=== PATIENT | female | born 1970 | race Caucasian/White ===

== ENCOUNTER 2018-12-30 08:02 | Day surgery (SDC) | payer BC ==
[2018-12-28 15:47] VITALS: BMI 35.5
[~2018-12-30 08:02] MED LIST: LACTATED RINGERS 1,000 ML IV SCH; LIDOCAINE 1% 20 ML VIAL (10MG/ML) FOR IV START INTRADERMA PRN
--- NOTE | 2018-12-30 08:02 | P.GSHP ---
History of Present Illness H&P Date: 12/30/18 CHIEF COMPLAINT: GERD HISTORY OF PRESENT ILLNESS: The patient is a 48-year-old female who presents reports gastroesophageal reflux disease. Upper endoscopy was offered for further evaluation and management. PAST MEDICAL HISTORY: Please see list. PAST SURGICAL HISTORY: Please see list. MEDICATIONS: Please see list. ALLERGIES: Please see list. SOCIAL HISTORY: No illicit drug use FAMILY HISTORY: No reports of Crohn disease or ulcerative colitis. REVIEW OF ORGAN SYSTEMS: CONSTITUTIONAL: No reports of fevers or chills. GI: Denies any blood in stools or constipation. PHYSICAL EXAM: VITAL SIGNS: Stable GENERAL: Well-developed and pleasant in no acute distress. HEENT: No scleral icterus. Extraocular movements grossly intact. Moist buccal mucosa. NECK: Supple without lymphadenopathy. CHEST: Unlabored respirations. Equal bilateral excursions. CARDIOVASCULAR: Regular rate and rhythm. Distal 2+ pulses. ABDOMEN: Soft, nondistended. MUSCULOSKELETAL: No clubbing, cyanosis, or edema. ASSESSMENT: 1. Gastroesophageal reflux disease PLAN: 1. Recommend proceeding with an upper endoscopy Past Medical History Past Medical History: GERD/Reflux, Hypertension, Thyroid Disorder Additional Past Medical History / Comment(s): arthritis in hip and back, History of Any Multi-Drug Resistant Organisms: None Reported Past Surgical History: Section, Cholecystectomy, Hysterectomy, Tonsillectomy Additional Past Surgical History / Comment(s): C/S x 3 Past Anesthesia/Blood Transfusion Reactions: Previous Problems w/ Anesthesia, Motion Sickness Additional Past Anesthesia/Blood Transfusion Reaction / Comment(s): "took longer to come out one time" Smoking Status: Never smoker - Past Family History Mother Family Medical History: Cancer Father Family Medical History: Cancer Medications and Allergies Home Medications Medication Instructions Recorded Confirmed Type L.acidoph,Paracasei, B.lactis 1 each PO DAILY 12/28/18 12/28/18 History [Probiotic] Thyroid, Pork [[place] Thyroid] 30 mg PO DAILY 12/28/18 12/28/18 History Vitamin A/D/K 1 tab PO DAILY 12/28/18 12/28/18 History amLODIPine [Norvasc] 5 mg PO DAILY 12/28/18 12/28/18 History Allergies Allergy/AdvReac Type Severity Reaction Status Date / Time ciprofloxacin Allergy tendons Verified 12/28/18 15:38 tightened/ could not walk codeine Allergy Rash/Hives/ Verified 12/28/18 15:38 hyperventil ated fexofenadine [From Abbi] Allergy Chest Verified 12/28/18 15:38 Pain/rash methylprednisolone Allergy headache,pa Verified 12/28/18 15:56 lpitations, rash pentazocine [From Talwin] Allergy rash/hyperv Verified 12/28/18 15:38 entilation sumatriptan [From Imitrex] Allergy Chest Verified 12/28/18 15:38 Pain/severe headache
[2018-12-30 08:35] VITALS: RESP 16; TEMP 98.1
[2018-12-30] MEDS ORDERED: LIDOCAINE 1% INJ 10MG/ML (20 ML MDV) ONE (08:54)
[2018-12-30] MEDS ORDERED: PROPOFOL 10 MG/ML 20 ML VIAL IV ONE (08:54)
--- NOTE | 2018-12-30 09:14 | P.PCN ---
Date of Procedure: 12/30/18 Description of Procedure: PREOPERATIVE DIAGNOSIS: Gastroesophageal reflux disease. Morbid obesity. POSTOPERATIVE DIAGNOSIS: Morbid obesity. Gastritis superficial, acute without bleeding Duodenitis, without bleeding and acute Gastroesophageal reflux disease with esophagitis Diaphragmatic hiatal hernia without obstruction OPERATION: Esophagogastroduodenoscopy with biopsies along antrum. SURGEON: Janey Salgado MD ANESTHESIA: MAC. INDICATIONS: The patient is a 48-year-old female who presents with a history of reflux disease. Benefits and risks of the procedure were described. Informed consent was obtained. DESCRIPTION: The patient was brought into the endoscopy suite and laid in the left lateral decubitus position. An Olympus gastroscope was passed along the posterior oropharynx down to the distal esophagus where the squamocolumnar junction was encountered at 40 cm from the incisors. The stomach was entered and no bile reflux was found. Additional findings are listed below. Biopsies with cold forceps were obtained of the antrum. The first through third portion of the duodenum was examined and unremarkable. Retroflexion of the scope confirmed Hill grade 3 lower esophageal valve. The squamocolumnar junction demonstrated LA grade A erosive esophagitis. The stomach was desufflated. The patient tolerated the procedure well. FINDINGS: Squamocolumnar junction 37 cm from the incisors. Diaphragmatic hiatus at 36 cm. Hiatal hernia, 1 cm Hill grade 3 lower esophageal valve. LA grade A erosive esophagitis. Active duodenitis. Acute superficial gastritis without RECOMMENDATIONS: Upper endoscopy as needed. Plan - Discharge Summary Discharge Rx Participant: No New Discharge Prescriptions: New Omeprazole 40 mg PO DAILY #14 capsule. No Action amLODIPine [Norvasc] 5 mg PO DAILY Thyroid, Pork [[place] Thyroid] 30 mg PO DAILY Vitamin A/D/K 1 tab PO DAILY L.acidoph,Paracasei, B.lactis [Probiotic] 1 each PO DAILY Discharge Medication List L.acidoph,Paracasei, B.lactis [Probiotic] 1 each PO DAILY 12/28/18 [History] Thyroid, Pork [[place] Thyroid] 30 mg PO DAILY 12/28/18 [History] Vitamin A/D/K 1 tab PO DAILY 12/28/18 [History] amLODIPine [Norvasc] 5 mg PO DAILY 12/28/18 [History] Omeprazole 40 mg PO DAILY #14 capsule. 12/30/18 [Rx] Follow up Appointment(s)/Referral(s): Janey Salgado MD [STAFF PHYSICIAN] - 01/26/19 Patient Instructions/Handouts: Duodenitis (DC), Gastritis (DC), Hiatal Hernia (DC) Activity/Diet/Wound Care/Special Instructions: Take new medication Omeprazole for 2 weeks. Discharge Disposition: HOME SELF-CARE
[2018-12-30 09:42] VITALS: BP 147/85; PULSE 78
== END 2018-12-30 10:01 | disposition home or self-care (01) ==
LOC: ORWHC2ENDO 08:02
PROVIDERS: ATTEND Surgery Plastic and Reconstructive Surgery
DX: K29.00 Acute gastritis without bleeding (principal); K29.50 Unspecified chronic gastritis without bleeding; K21.0 Gastro-esophageal reflux disease with esophagitis; K29.80 Duodenitis without bleeding; K44.9 Diaphragmatic hernia without obstruction or gangrene; I10 Essential (primary) hypertension; E07.9 Disorder of thyroid, unspecified; Z79.899 Other long term (current) drug therapy; Z88.5 Allergy status to narcotic agent; Z88.8 Allergy status to other drugs, medicaments and biological substances; E66.01 Morbid (severe) obesity due to excess calories; F41.9 Anxiety disorder, unspecified; Z88.1 Allergy status to other antibiotic agents; Z68.35 Body mass index [BMI] 35.0-35.9, adult
CPT/HCPCS: 43239; J2001; J2704; 88305

== ENCOUNTER 2019-02-12 08:47 | Day surgery (SDC) | payer BC ==
[2019-02-05 15:40] VITALS: BMI 34.5
--- NOTE | 2019-02-12 06:24 | P.GSHP ---
History of Present Illness H&P Date: 02/12/19 CHIEF COMPLAINT: Paraesophageal hiatal hernia with gastroesophageal reflux disease. HISTORY OF PRESENT ILLNESS: The patient is a 49-year-old female who presents with paraesophageal hiatal hernia. She has completed an esophageal manometry including upper endoscopy workup. Now she presents for surgical intervention. PAST MEDICAL HISTORY: Please see list. PAST SURGICAL HISTORY: Please see list. MEDICATIONS: Please see list. ALLERGIES: Please see list. SOCIAL HISTORY: No illicit drug use FAMILY HISTORY: No reports of Crohn disease or ulcerative colitis. REVIEW OF ORGAN SYSTEMS: CONSTITUTIONAL: No reports of fevers or chills. GI: Denies any blood in stools or constipation. PHYSICAL EXAM: VITAL SIGNS: Stable GENERAL: Well-developed pleasant and in no acute distress. HEENT: No scleral icterus. Extraocular movements grossly intact. Moist buccal mucosa. NECK: Supple without lymphadenopathy. CHEST: Unlabored respirations. Equal bilateral excursions. CARDIOVASCULAR: Regular rate and rhythm. Distal 2+ pulses. ABDOMEN: Soft, nondistended. No peritoneal signs. MUSCULOSKELETAL: No clubbing, cyanosis, or edema. SKIN: Well-perfused. Good skin turgor. MANOMETRY: Shows no evidence of achalasia or scleroderma. ASSESSMENT: 1. Diaphragmatic paraesophageal hiatal hernia with severe gastroesophageal reflux disease. PLAN: 1. Recommend proceeding with a robotic paraesophageal hiatal hernia with possible mesh. 2. Benefits and risks of surgical intervention was discussed including possibility of open technique. 3. Inpatient hospitalization recommended of 2 nights 4. DVT prophylaxis. 5. Antibiotic prophylaxis. 6. She has also completed a very low caloric high-protein diet to address underlying hepatomegaly. Past Medical History Past Medical History: GERD/Reflux, Hypertension, Osteoarthritis (OA), Thyroid Disorder Additional Past Medical History / Comment(s): Arthritis in hip and back. History of Any Multi-Drug Resistant Organisms: None Reported Past Surgical History: Section, Cholecystectomy, Hysterectomy, Tonsillectomy Additional Past Surgical History / Comment(s): Section X3. Past Anesthesia/Blood Transfusion Reactions: Previous Problems w/ Anesthesia, Motion Sickness Additional Past Anesthesia/Blood Transfusion Reaction / Comment(s): "Took longer to come out one time." Smoking Status: Never smoker - Past Family History Mother Family Medical History: Cancer Father Family Medical History: Cancer Medications and Allergies Home Medications Medication Instructions Recorded Confirmed Type L.acidoph,Paracasei, B.lactis 1 each PO DAILY 12/28/18 02/05/19 History [Probiotic] Thyroid, Pork [[place] Thyroid] 30 mg PO QAM 12/28/18 02/05/19 History Vitamin A/D/K 1 tab PO DAILY 12/28/18 02/05/19 History amLODIPine [Norvasc] 5 mg PO QAM 12/28/18 02/05/19 History Allergies Allergy/AdvReac Type Severity Reaction Status Date / Time ciprofloxacin Allergy tendons Verified 02/05/19 15:10 tightened/ could not walk codeine Allergy Rash/Hives/ Verified 02/05/19 15:10 hyperventil ated fexofenadine [From Abbi] Allergy Chest Verified 02/05/19 15:10 Pain/rash methylprednisolone Allergy headache,pa Verified 02/05/19 15:10 lpitations, rash pentazocine [From Talwin] Allergy rash/hyperv Verified 02/05/19 15:10 entilation sumatriptan [From Imitrex] Allergy Chest Verified 02/05/19 15:10 Pain/severe headache
[~2019-02-12 08:47] MED LIST changes: +CHLORHEXIDINE GLUCONATE 15 ML CUP MUCOUS MEM ONE; +HEPARIN SODIUM,PORCINE 5,000 UNIT/ML 1 ML VIAL SQ ONE; -LACTATED RINGERS 1,000 ML IV SCH; -LIDOCAINE 1% 20 ML VIAL (10MG/ML) FOR IV START INTRADERMA PRN; +MIDAZOLAM 2 MG/2 ML VIAL IV PRN; +ONDANSETRON 4 MG/2 ML VIAL IVP ONE; +PANTOPRAZOLE 40 MG/10 ML VIAL IV STA; +SCOPOLAMINE 1.5MG/72HR PATCH TRANSDERM ONE; +ceFAZolin IN SWFI 2 GM/20 ML SYRINGE IVP ONE; +fentaNYL (PF) 50 MCG/ML 2 ML AMP IV PRN
[2019-02-12] MEDS: LACTATED RINGERS 1,000 ML IV SCH (09:23)
[2019-02-12 09:37] LABS: HCT 41.5 % (34.0-46.0); HGB 13.9 gm/dL (11.4-16.0); MCH 29.1 pg (25.0-35.0); MCHC 33.5 g/dL (31.0-37.0); Mean Platelet Volume 7.1; Platelet Count 294 k/uL (150-450); RBC 4.77 m/uL (3.80-5.40); RDW 12.7 % (11.5-15.5); WBC 5.8 k/uL (3.8-10.6)
[2019-02-12 09:55] LABS: ALT 28 U/L (9-52); AST 28 U/L (14-36); Albumin 4.7 g/dL (3.5-5.0); Alkaline Phosphatase 81 U/L (38-126); Anion Gap 8 mmol/L; Blood Urea Nitrogen 7 mg/dL (7-17); Calcium 9.6 mg/dL (8.4-10.2); Carbon Dioxide 26 mmol/L (22-30); Chloride 107 mmol/L (98-107); Glucose 107 mg/dL (74-99); Sodium 141 mmol/L (137-145); Total Bilirubin 0.8 mg/dL (0.2-1.3); Total Protein 7.4 g/dL (6.3-8.2)
[2019-02-12] MEDS ORDERED: NEOSTIGMINE 1 MG/ML 10 ML VIAL ONE (11:28)
[2019-02-12] MEDS ORDERED: fentaNYL (PF) 50 MCG/ML 2 ML AMP ONE (11:28)
[2019-02-12] MEDS ORDERED: SUCCINYLCHOLINE CHLORIDE 100 MG/5 ML SYR IV ONE (11:28)
[2019-02-12] MEDS ORDERED: MIDAZOLAM 2 MG/2 ML VIAL ONE (11:28)
[2019-02-12] MEDS ORDERED: GLYCOPYRROLATE 0.2 MG/ML 2 ML VIAL ONE (11:28)
[2019-02-12] MEDS ORDERED: PROPOFOL 10 MG/ML 20 ML VIAL IV ONE (11:28)
[2019-02-12] MEDS ORDERED: LIDOCAINE 1% INJ 10MG/ML (20 ML MDV) ONE (11:28)
[2019-02-12] MEDS ORDERED: KETOROLAC 30 MG/ML 1 ML VIAL ONE (11:28)
[2019-02-12] MEDS ORDERED: ROCURONIUM BROMIDE 10 MG/ML 10 ML VIAL IV ONE (11:28)
[2019-02-12] MEDS ORDERED: BUPIVACAINE (PF) 0.5% 30 ML VIAL SQ ONE (12:30)
--- NOTE | 2019-02-12 13:31 | P.OP ---
Date of Procedure: 02/12/19 Description of Procedure: SURGEON: ROLANDO MOORE MD PREOPERATIVE DIAGNOSES: 1. Symptomatic paraesophageal diaphragmatic hiatal hernia. 2. Gastroesophageal reflux disease. 3. Hypertensive lower esophageal sphincter 4. Hypothyroidism 5. Obesity, BMI 34.6. 6. Anxiety 7. Atypical chest pain POSTOPERATIVE DIAGNOSES: 1. Symptomatic paraesophageal diaphragmatic hiatal hernia, 4 x4 cm, initial 2. Gastroesophageal reflux disease. 3. Hypertensive lower esophageal sphincter 4. Hypothyroidism 5. Obesity, BMI 34.6. 6. Anxiety 7. Atypical chest pain 8. Gastric polyps OPERATION: 1. Robotic-assisted da Terri Xi laparoscopic repair of incarcerated paraesophageal hiatal hernia, 4 x 4 cm, with Osmond Biopatch A 8 x 8 cm. 2. Esophageal dilation with 56 Fr Bougie 3. Intraoperative esophagogastroduodenoscopy ANESTHESIA: General with local anesthetic. ESTIMATED BLOOD LOSS: 10 mL SPECIMENS REMOVED: None COMPLICATIONS: None. Condition: stable Disposition: floor FINDINGS: 1. Midline incarcerated paraesophageal hiatal hernia 4 x 4 cm 2. Intraoperative upper endoscopy confirms complete closure of hiatal hernia from Hill grade 4 to Hill grade 1 3. Intra-abdominal esophageal length, 3 cm 4. Peritoneal adhesion of the lower abdomen omentum to the abdominal wall was undisturbed. INDICATIONS: The patient is a 49-year-old female who presents with regurgitation, atypical chest pain with and a symptomatic diaphragmatic hiatal hernia. Preoperative workup including upper endoscopy demonstrated a Hill grade 4 lower esophageal valve. She completed an esophageal manometry. Given the severity of symptoms, she had elected for surgical intervention. Benefits and risks including bleeding, infection, recurrence, dysphagia, injury to the lung, need for further surgery was described at length. Informed consent was obtained. DESCRIPTION: The patient was brought into the operating room and placed in supine position. Preoperatively she had received heparin subcutaneously for DVT prophylaxis. After general induction, the abdomen was prepped and draped in standard sterile fashion. The patient had previously voided prior to coming to the operating room. Ioban draping was placed along the abdomen. A timeout protocol was confirmed with the surgical team, for which the patient's name, procedure to be performed including DVT prophylaxis with bilateral SCDs, and preoperative antibiotics were also confirmed. A robotic da Terri Xi system was prepped and primed. At 12 cm from the xiphoid to just below the umbilicus, proposed port sites were marked with indelible marker along the left axillary line, left mid-clavicular line with each ports were marked 10 cm from each other. A 5 mm 0 degrees laparoscopic trocar entry was performed along the left upper quadrant. The abdomen was insufflated to 15 mmHg pressure was tolerated well. Diagnostic laparoscopy demonstrated no injury to bowel, viscera, or mesentery. No injury had occurred to the small bowel or viscera. Peritoneal adhesion of the lower abdomen omentum to the abdominal wall was undisturbed. Next, one 8 mm robotic port was placed along the right upper abdomen. An 8-mm port was were placed along the left lateral abdominal wall. The camera 8-mm port was maintained along the epigastrium via the hernia defect. Another 12 mm port was placed along the left upper abdominal wall after exchanging the 5 mm port. Please note that the ports were placed at least 20 cm away from the target anatomy. Care was taken to check that each robotic arm were safely away from collision with the bed or the patient. At the epigastrium, a medium sized [place] liver retractor was placed under direct visualization with the [employer] Cleaner placed under the right shoulder of the patient. All robotic arms were used. The patient was repositioned in reverse Trendelenburg position at 16-degrees after lowering the bed. The robot was docked above the right side of the patient. Using a grasper for arm 3, a grasper for arm 1, including vessel sealer for arm 2, the robotic system was docked and primed as described. Instruments were interchanged by the liaison inspection laboratory assistant. I had sat at the console. The gastrohepatic ligament was cleaved using a vessel sealer. Next, the phrenoesophageal ligament was mobilized and the distal esophagus was mobilized circumferentially. The left and right crura was identified. Circumferentially, the hernia sac was excised and brought into the peritoneal cavity. Dissection into the mediastinum was performed to release the esophagus into the abdominal cavity. The paraesophageal hiatal hernia sac was also incised and divided from the esophagus. The measured defect was consistent with 4 cm axial length and 4 cm in width. After dissection, the distal esophagus of 3 cm was brought into the abdominal cavity. Once the hiatus and crura was dissected, 2-0 VLOC suture was placed to reapproximate the diaphragmatic hiatus posteriorly. To buttress the repair, a [place] Biopatch A was prepared along the back table and cut in half of a venegas-hole fashion as to reinforce the repair as an underlay. The mesh was placed along the crural repair and tagged using horizontal mattress sutures using 2-0 VLOC. I went to the head of the bed to perform intraoperative esophagogastroduode noscopy and placement of a 56Fr bougie. The 56 Fr bougie was passed easily into the posterior pharynx and into the stomach to treat her hypertensive lower esophageal sphincter and removed after 2 minutes. An Olympus gastroscope was passed through posterior oropharynx. Retroflexion of the scope confirmed a Hill grade 1 lower esophageal valve. The stomach had been desufflated. No evidence of leaks were found of the esophagus or stomach. The GI tract with desufflated This concluded the endoscopic portion of the case. The robot was undocked from the patient. I re-scrubbed into the case. All instruments and pneumoperitoneum and specimens were evacuated from the abdominal cavity. Incisions were reapproximated using 4-0 Monocryl in an interrupted subcuticular fashion. Liquid glue was applied to the skin. Local anesthetic was infiltrated in all wounds for postop analgesia. Multiple intra-abdominal films were obtained. At the end of the procedure, needle, sponge, and instrument count was verified correct by the assistant professor surgical technology. The patient had tolerated the procedure well and was taken to the postanesthesia unit in stable condition. Intraoperative films were reviewed with the patient's family who was pleased with the level of care. Console time 41 minutes
[2019-02-12] MEDS ORDERED: diphenhydrAMINE 50 MG/ML 1 ML VIAL IVP PRN (13:55)
[2019-02-12] MEDS ORDERED: NALOXONE 0.4 MG/ML 1 ML VIAL IV PRN (13:55)
[2019-02-12] MEDS ORDERED: LACTATED RINGERS 1,000 ML IV ONE ×2 (14:03→14:06)
[2019-02-12] MEDS: KETOROLAC 30 MG/ML 1 ML VIAL IVP SCH (15:41)
[2019-02-12] MEDS: METOCLOPRAMIDE 5 MG/ML 2 ML VIAL IVP SCH (16:46)
[2019-02-12] MEDS: SIMETHICONE 40 MG/0.6 ML DROPS 2,000 MG/30 ML BOTTLE PO SCH (16:47)
--- NOTE | 2019-02-12 19:03 | P.DS ---
Providers Date of admission: 02/12/2019 Expected date of discharge: 02/13/19 Attending physician: Janey Salgado Primary care physician: [facility] Course: Patient clinically evaluated. She is doing well. She is tolerating liquids. Discharge instructions including Beryr diet reviewed. Patient to be discharged after esophagram. Otherwise clinically stable for discharge Plan - Discharge Summary Discharge Rx Participant: Yes New Discharge Prescriptions: New Bisacodyl [Dulcolax] 5 mg PO DAILY PRN #10 tablet. PRN Reason: Constipation Simethicone 40 mg/0.6 ml Drops [Mylicon Drops] 40 mg PO PCHS PRN #30 ml PRN Reason: Gas Ondansetron Odt [Zofran Odt] 4 mg PO Q8HR PRN #9 tab PRN Reason: Nausea Ibuprofen [Motrin] 600 mg PO Q8HR PRN #20 tab PRN Reason: Pain Continue amLODIPine [Norvasc] 5 mg PO QAM Thyroid, Pork [[place] Thyroid] 30 mg PO QAM L.acidoph,Paracasei, B.lactis [Probiotic] 1 each PO DAILY Discontinued Vitamin A/D/K 1 tab PO DAILY Discharge Medication List L.acidoph,Paracasei, B.lactis [Probiotic] 1 each PO DAILY 12/28/18 [History] Thyroid, Pork [[place] Thyroid] 30 mg PO QAM 12/28/18 [History] amLODIPine [Norvasc] 5 mg PO QAM 12/28/18 [History] Bisacodyl [Dulcolax] 5 mg PO DAILY PRN #10 tablet. 02/12/19 [Rx] Ibuprofen [Motrin] 600 mg PO Q8HR PRN #20 tab 02/12/19 [Rx] Ondansetron Odt [Zofran Odt] 4 mg PO Q8HR PRN #9 tab 02/12/19 [Rx] Simethicone 40 mg/0.6 ml Drops [Mylicon Drops] 40 mg PO PCHS PRN #30 ml 02/12/19 [Rx] Follow up Appointment(s)/Referral(s): Janey Salgado MD [STAFF PHYSICIAN] - 02/17/19 Patient Instructions/Handouts: Laparoscopic Hiatal Hernia Repair (DC) Activity/Diet/Wound Care/Special Instructions: No lifting over 4 pounds in 4 weeks through 03/15/2019. January shower. No bath tub soaks. No straws. No carbonated beverages. Liquid diet only to February 28. January crush, open, cut tablets greater than the size of a tic tac. FOLLOW BERRY DIET HANDOUT BY YOUR SURGEON Discharge Disposition: HOME SELF-CARE
[2019-02-12] MEDS: D5-0.45% NACL WITH KCL 20MEQ/L 1,000 ML IV SCH ×2 (20:21→23:26)
[2019-02-13] MEDS: KETOROLAC 30 MG/ML 1 ML VIAL IVP SCH ×2 (00:30→05:26)
[2019-02-13] MEDS: ceFAZolin IN SWFI 2 GM/20 ML SYRINGE IVP SCH ×2 (00:30→05:38)
[2019-02-13] MEDS: SIMETHICONE 40 MG/0.6 ML DROPS 2,000 MG/30 ML BOTTLE PO SCH ×2 (00:30→05:32)
[2019-02-13] MEDS: METOCLOPRAMIDE 5 MG/ML 2 ML VIAL IVP SCH ×2 (00:30→05:29)
[2019-02-13] MEDS: LACTATED RINGERS 1,000 ML IV SCH (05:21)
[2019-02-13] MEDS: D5-0.45% NACL WITH KCL 20MEQ/L 1,000 ML IV SCH (05:33)
[2019-02-13 07:11] LABS: Anion Gap 6 mmol/L; Blood Urea Nitrogen 5 mg/dL (7-17); Calcium 8.6 mg/dL (8.4-10.2); Carbon Dioxide 26 mmol/L (22-30); Chloride 109 mmol/L (98-107); Magnesium 1.9 mg/dL (1.6-2.3); Phosphorus 2.9 mg/dL (2.5-4.5); Potassium 3.8 mmol/L (3.5-5.1); Sodium 141 mmol/L (137-145)
[2019-02-13 07:25] VITALS: BP 114/61; PULSE 67; RESP 16; TEMP 98.4
[2019-02-13] MEDS ORDERED: HEPARIN SODIUM,PORCINE 5,000 UNIT/ML 1 ML VIAL SQ SCH (09:00)
[2019-02-13] MEDS ORDERED: PANTOPRAZOLE 40 MG/10 ML VIAL IV SCH (09:00)
--- NOTE | 2019-02-13 11:35 | P.PN ---
Progress Note - Text Progress Note Date: 02/13/19 Patient is doing well. She has with the pain. On exam her vital signs are stable. Soft. Incision sites are clean and intact. Status post hiatal hernia repair. Patient will be discharged home later today.
--- NOTE | 2019-02-13 13:56 | FL ---
EXAMINATION TYPE: FL esophagus cervic/pharynx DATE OF EXAM: 02/13/2019 HISTORY: Status post Smiley fundoplication COMPARISON: NONE TECHNIQUE: A signal contrast esophagram is performed utilizing air and barium. FINDINGS: The esophagus shows normal motility. There is postop change to the gastroesophageal junction. There i s no obstruction to flow. No evident leak. Surgical clips are noted incidentally in the right upper q uadrant. 20 seconds fluoroscopy time. Patient received 50 cc oral Isovue-370. 4 images obtained. IMPRESSION: No evident complication status post Smiley fundoplication.
[2019-02-14] MEDS ORDERED: BISACODYL 5 MG TABLET.DR PO PRN (08:00)
== END 2019-02-13 11:15 | disposition home or self-care (01) ==
LOC: OR 08:47 → EDSTATUS 10:15 → 4SSUR 13:30 → OR 02-13 11:15
PROVIDERS: ATTEND Surgery Plastic and Reconstructive Surgery
DX: K44.0 Diaphragmatic hernia with obstruction, without gangrene (principal); K22.0 Achalasia of cardia; K21.9 Gastro-esophageal reflux disease without esophagitis; K31.7 Polyp of stomach and duodenum; I10 Essential (primary) hypertension; M19.90 Unspecified osteoarthritis, unspecified site; M16.10 Unilateral primary osteoarthritis, unspecified hip; M47.9 Spondylosis, unspecified; E03.9 Hypothyroidism, unspecified; E66.9 Obesity, unspecified; Z68.34 Body mass index [BMI] 34.0-34.9, adult; F41.9 Anxiety disorder, unspecified; R07.89 Other chest pain; Z79.890 Hormone replacement therapy; Z79.899 Other long term (current) drug therapy; Z88.1 Allergy status to other antibiotic agents; Z88.5 Allergy status to narcotic agent; Z88.8 Allergy status to other drugs, medicaments and biological substances
CPT/HCPCS: 43282; 43499; S2900; 74210; 80051; 80053; 82310; 82565; 83735; 84100; 84520; 85027

== ENCOUNTER → 2019-03-02 | Outpatient (CLI) | payer BC ==
--- NOTE | 2019-03-02 12:20 | XR ---
EXAMINATION TYPE: XR chest 2V DATE OF EXAM: 03/02/2019 COMPARISON: NONE HISTORY: Shortness of breath. TECHNIQUE: Frontal and lateral views of the chest are obtained. FINDINGS: There is no focal air space opacity, pleural effusion, or pneumothorax seen. The cardiac silhouette size is within normal limits. The osseous structures are intact. Cholecystectomy clips n oted on both views. IMPRESSION: No acute cardiopulmonary process.
== END | disposition home or self-care (01) ==
LOC: RADXRMAIN 11:38
PROVIDERS: ATTEND Surgery Plastic and Reconstructive Surgery
DX: R06.02 Shortness of breath (principal)
CPT/HCPCS: 71046

== ENCOUNTER → 2019-04-19 | Outpatient (CLI) | payer BC ==
--- NOTE | 2019-04-19 15:48 | CT ---
EXAMINATION TYPE: CT chest w con DATE OF EXAM: 04/19/2019 COMPARISON: None HISTORY: 49 year-old female shortness of breath, Dyspnea TECHNIQUE: Contiguous axial scanning of the chest after the administration of 100 ml mL of Isovue 300 . Coronal/sagittal reconstructions performed. CT DLP: 634mGycm. Automatic exposure control utilized for a dose reduction. FINDINGS: Heart normal size without pericardial effusion. Aorta normal caliber within the tortuous origin anatomy. No thoracic lymphadenopathy by CT size criteria. Evaluation of the lungs shows a 6 mm posterior right upper lobe pulmonary nodule, axial image 14. No consolidation or pleural effusion. Visualized upper abdomen shows cholecystectomy clips. Bones: No osseous destructive process. IMPRESSION: 1. A 6 mm posterior right upper lobe pulmonary nodule. 6 month follow-up CT recommended to reassess. 2. No acute pulmonary process.
== END | disposition home or self-care (01) ==
LOC: RADCTMAIN 14:03
PROVIDERS: ATTEND Internal Medicine Critical Care Medicine
DX: R91.1 Solitary pulmonary nodule (principal)
CPT/HCPCS: 71260; Q9967